=== PATIENT | male | born 1955 | race Caucasian/White ===

== ENCOUNTER 2024-04-30 14:05 | Emergency (ER) | payer MEDICARE, OTHER, SELFPAY ==
[2024-04-30 14:08] VITALS: BP 159/93
--- NOTE | 2024-04-30 14:43 | ED.GENMED ---
History of Present Illness
General
Chief Complaint: Chest Pain
Source: patient
Exam Limitations: none
Time Seen by Provider: 04/30/24 14:30
History of Present Illness
History of Present Illness:
69-year-old male presents complaining of fairly steady chest pain that sharp in nature to the left upper chest that has more recently been rating to his arm. This has been going on for about a month. He spoke with his family doctor today and was
sent here for evaluation. No recent travel or surgery. No leg swelling or calf pain. He does state that it gets worse when he takes a deep breath. He denies shortness of breath. He admits to smoking marijuana daily. He drinks several glasses
of alcohol daily. He states this started soon after his female partner of 30 years left him. Pain does not radiate to the back. Pain is unchanged with eating. No other complaints
Phy Exam
Physical Exam
Physical Exam:
General: Well-appearing nontoxic male no acute distress
HEENT: Normocephalic atraumatic
Heart: Regular rate and rhythm no murmurs
Lungs: Clear no wheeze
Abdomen is soft nontender nondistended
Extremities: No cyanosis or edema
Scores
Heart Score for Chest Pain Patients
STEMI patient?: No
History: Slightly or Non-Suspicious
ECG: Normal
Age: >/= 65 years
Risk Factors: 1 or 2 Risk Factors
Troponin: </= Normal Limit
Heart Score for Chest Pain Patients: 3
Heart Score Risk: 2.5% MACE over next 6 weeks
Course
Orders/Labs/Results
Orders:
Orders
04/30/24 14:07
EKG [Electrocardiogram (*1)] Urgent
Reason for Study: Chest Pain
EKG- Treatment ONCE
04/30/24 15:20
Complete Blood Count/With Diff Urgent
Comprehensive Metabolic Panel Urgent
D-Dimer Urgent
Lipase Urgent
Troponin I Urgent
Abnormal Lab Results
04/30/24
15:20
RBC 4.15 L 10^6/uL
(4.70-6.10)
Hct 36.6 L %
(39.0-52.0)
MCH 31.3 H pg
(27.0-31.0)
Abs Immat Gran (auto) 0.1 H 10^3/uL
(0-0.05)
Absolute Neuts (auto) 7.3 H 10^3/uL
(1.4-6.5)
Neutrophils % 76.8 H %
(42.2-75.2)
Lymphocytes % 15.8 L %
(20.5-51.1)
BUN 28 H mg/dl
(9-20)
Creatinine 1.4 H mg/dL
(0.7-1.3)
Glucose 140 H mg/dl
(70-99)
Calcium 10.4 H mg/dl
(8.4-10.2)
04/30/24 15:20
04/30/24 15:20
Vital Signs
Initial and Last Documented VS:
Initial Vital Signs
Temp Pulse Resp BP Pulse Ox
98.3 F 84 18 159/93 99
04/30/24 14:08 04/30/24 14:08 04/30/24 14:08 04/30/24 14:08 04/30/24 14:08
Last Documented Vital Signs
Temp Pulse Resp BP Pulse Ox
98.3 F 50 16 147/78 98
04/30/24 14:08 04/30/24 16:45 04/30/24 16:45 04/30/24 16:00 04/30/24 16:45
MDM/Problems Addressed
Differential Diagnosis Includes:
Chest pain. Somewhat atypical and has been lasting for a month. Suspicion of ACS is fairly low but troponin is pending. EKG was reviewed and demonstrates normal sinus rhythm with a rate of 72 no acute ischemic changes noted. Pain is slightly
pleuritic. No risk factors for PE however cannot clinically rule out given his age. D-dimer is pending. Patient states he has been under significant mount of stress with his female partner of 30 years leaving him.
*Critical Care Note
Total Time (30-74mins, 75-104mins- exclusive of procedures): Not Applicable
Update Note
Update Note:
Workup here reviewed. Troponin undetectable here. D-dimer negative. Patient has had a months worth of chest discomfort. Do not suspect ACS dissection PE. Patient is under a lot of stress. This may be related. Stable for discharge with
follow-up with family doctor.
ED Attending Note
-
Portions of this chart may have been created with voice recognition software.� Occasional wrong word or��sound alike� substitutions may have occurred due to the inherent limitations of voice recognition software.
Discharge Plan
Departure
Patient Disposition: Home (Routine Discharge)
Date of Disposition: 04/30/24
Time of Disposition: 18:32
Patient with high blood pressure during this ER visit?: No
Discharge Problem:
Chest pain
Instructions: Chest Pain PCP Follow Up
Referrals:
Suellen Merino CRNP [Family Provider] -
Activity Restrictions/Additional Instructions:
Please return here for worsening symptoms otherwise follow-up with family doctor
Interventions
Interventions:
*Risk Screen - Suicide Last Done: 04/30/24 15:20
*General Assessment Last Done: 04/30/24 15:20
*Neglect/Abuse Screening Last Done: 04/30/24 15:20
ED- Cardiac Assessment Last Done: 04/30/24 15:20
Discharge Date and Time
Print Language: STATELESS
[2024-04-30 15:17] VITALS: BP 134/68
[2024-04-30 15:25] VITALS: BMI 28.9
[2024-04-30 15:33] LABS: % Basophils 0.3 % (0-2); % Eosinophils 0.5 % (0-6); % Immature Granulocytes 0.5 % (0-0.5); % Lymphocytes 15.8 % (20.5-51.1); % Monocytes 6.1 % (1.7-9.3); % Neutrophils 76.8 % (42.2-75.2); Absolute Eosinophils 0.1 10^3/uL (0-0.7); Absolute Immature Granulocytes 0.1 10^3/uL (0-0.05); Absolute Lymphocytes 1.5 10^3/uL (1.2-3.4); Absolute Monocytes 0.6 10^3/uL (0.1-0.6); Absolute Neutrophils 7.3 10^3/uL (1.4-6.5); Hematocrit 36.6 % (39.0-52.0); Mean Corp Hgb Conc. 35.5 g/dL (33.0-37.0); Mean Corpuscular Hgb 31.3 pg (27.0-31.0); Mean Corpuscular Volume 88.2 fL (80.0-94.0); Mean Platelet Volume 9.8 fL (7.4-10.4); Nucleated Red Blood Cells % 0 % (-); Platelet Count 293 10^3/uL (130-400); Red Blood Cell Count 4.15 10^6/uL (4.70-6.10); Red Cell Dist. Width 12.8 % (11.5-14.5); White Blood Cell Count 9.5 10^3/uL (4.8-10.8)
[2024-04-30 15:44] LABS: D-Dimer 0.41 ug/mlFEU (0.00-0.50)
[2024-04-30 15:53] LABS: ALT (SGPT) 23 U/L (0-50); AST (SGOT) 27 U/L (17-59); Albumin 4.9 g/dl (3.5-5.0); Alkaline Phosphatase 101 U/L (38-126); Blood Urea Nitrogen 28 mg/dl (9-20); Calcium 10.4 mg/dl (8.4-10.2); Carbon Dioxide 23 mmol/L (22-30); Chloride 104 mmol/L (98-107); Estimated Creatinine Clearance 48 ml/min; Glucose 140 mg/dl (70-99); Lipase 150 U/L (23-300); Potassium 4.3 mmol/L (3.5-5.1); Sodium 142 mmol/L (135-145); Total Bilirubin 0.7 mg/dl (0.2-1.3); Total Protein 7.5 g/dl (6.3-8.2); eGFR 54.07
[2024-04-30 15:55] LABS: Troponin I < 0.012 ng/ml
[2024-04-30 16:00] VITALS: BP 147/78
== END 2024-04-30 18:56 | disposition home or self-care (01) ==
LOC: EMR 14:05
PROVIDERS: Physician Assistant; EMERGENCY PHYSICIAN Emergency Medicine; FAMILY PHYSICIAN Nurse Practitioner Adult Health
DX: R07.89 Other chest pain (principal); M79.602 Pain in left arm; F12.90 Cannabis use, unspecified, uncomplicated; F10.90 Alcohol use, unspecified, uncomplicated; Z73.3 Stress, not elsewhere classified
CPT/HCPCS: 99283; 80053; 83690; 84484; 85025; 85379; 93005